=== PATIENT | male | born 1995 | race Caucasian/White ===

== ENCOUNTER 2019-04-17 13:01 | Observation (INO) | payer SELFPAY ==
[2019-04-17] VITALS (42 sets, daily range): BP systolic 95–121; BP diastolic 57–93; PULSE 67–141; RESP 12–21; TEMP 35.7–36.7; O2SAT 96–100
--- NOTE | 2019-04-17 13:08 | ED.GENADUL_ITS ---
Discharge Plan Discharge Details Chief Complaint: Dizzy/Sync Admit Date/Time: 04/17/19 16:08 Admit Provider: Federico Romero Attending Provider: Federico Romero Primary Care Provider: Victorino Jordan ED Provider: Hiral Gr Discharge Data Discharge Date/Time-TO BE ENTERED AT DEPARTURE: 04/17/19 16:43 Medical Decision Making Patient is a 24 old male presenting today after a presyncopal event. Reports that he had walked from home to work and during that work felt slightly dizzy. States he does this on a daily basis and typically does not experience this. However, today when he arrived at work and has been still for a few months the lightheadedness increased to the point that he thought that he may have a syncopal episode. He expresses to coworkers who are able to get him to a resting position and called EMS. When EMS arrived, patient was tachycardic in the 120s. Initially, there was concern that this may have been associated with the patient being dehydrated. He does report that he typically does not drink much water throughout the day but he did have a few glasses this morning prior to going to work. Patient has had multiple syncopal episodes like this historically. States that often they are around times of stress. He has experienced chest pain with them historically but denies any today. Denies any headache, visual changes, shortness of breath, difficulty breathing, GI upset. No recent fevers or chills. Currently feeling much improved and asymptomatic. Family history pertinent for his maternal grandmother dying at young age from [place] and father dying at the age of 30. Patient was estranged from his father and is unclear what caused his but believes it may have been cardiac etiology. Patient reports that he typically walks to and from work at least 3 times a day and does not normally experience symptoms like this. ECG was reviewed by Dr. Rojas. Patient's normal sinus rhythm, please see his notes for further information. Contacted by the lab with concern for patient troponin elevated 0.07. He does report that he has had an echo history of major mid after similar episode, will obtain these results. Plan to give the patient aspirin. He denies any chest pain, shortness of breath, difficulty breathing. Again, no nausea, no radiating pain. He was tachycardic in the 120s per EMS with orthostatic testing. Patient has not been tachycardic while here. Labs otherwise without significant abnormality. Plan for repeat troponin. Patient given Aspirin. Reviewed notes from [facility] [place]. Patient was last seen for similar episode on 12/15/2017. At that time as well, patient was endorsing a large amount of stress and had a syncopal episode. He was seen a month prior to that for the same thing in her ED. At that time, troponins not obtained. EKG was normal. Patient reporting echo performed did not find any record of this. Consulted with Dr. Latif. He advised patient should have at least 2-3 repeat troponins as well as continued monitoring. Advised echo. We did discuss plus/minus of inpatient admission. I also discussed this at length with the patient. As the patient has had similar episodes historically, was quite tachycardiac per EMS, has elevated troponin and very concerning family history, feel that admission is appropriate. Primarily concerned for arrhythmia leading to patient elevated troponin and symptoms. Consulted with Dr. Casiano regarding admission of the patient for continued monitoring and further cardiac testing tomorrow. He agrees to admission. HPI General Mode of arrival: EMS . Date/Time Provider Initiated Documentation: 04/17/19 13:08 . Limitations to Documentation: no limitations . Information obtained by: patient, family (significant other), EMS and RN notes reviewed . HPI Narrative: Patient is a 24 year old male, brought in via EMS, after pre-syncopal episode at work. Patient reports that shortly after arriving to work today he suddenly became lightheaded and felt weak. States that he expressed the sensations in his coworkers who helped lower him to a chair. Denies striking his head. Did not actually loose consciousness. States that he has had this occur multiple times historically. Reports that when he is at his previously he had chest discomfort but denies this today. No chest pain, shortness of breath. Denies any headache, visual changes. No recent infectious symptoms. No fever/chills, GI upset. Denies any incontinence. Related Data Home Medications Medication Instructions Recorded Confirmed Unknown [No Known Home Meds] 04/17/19 04/17/19 Allergies Allergy/AdvReac Type Severity Reaction Status Date / Time No Known Allergies Allergy Unverified 04/17/19 13:06 General Stated Complaint: Dizzy/Sync JOSUE: 3 Review of Systems Constitutional Constitutional: Reports as per HPI, Denies chills, Denies fever(s), Denies frequent falls, Denies headache(s), Denies lethargy and Denies poor appetite Eyes Eyes: Denies change in vision ENT Ears, Nose, Mouth, and Throat: Reports dizziness and Denies headache(s) Cardiovascular Cardiovascular: Reports as per HPI, Denies syncope, Denies dyspnea and Denies dyspnea on exertion Respiratory Respiratory: Reports as per HPI, Denies chest congestion, Denies cough, Denies pain on inspiration, Denies pain with cough, Denies dyspnea, Denies dyspnea on exertion and Denies wheezing Gastrointestinal Gastrointestinal: Reports as per HPI, Denies abdominal pain, Denies diarrhea, Denies nausea and Denies vomiting Genitourinary Genitourinary: Denies system reviewed and no additional complaints, except as docu (denies change in urinary habits) Musculoskeletal Musculoskeletal: Reports as per HPI, Denies abnormal gait and Denies back pain Integumentary/Breasts Skin/Breast: Reports as per HPI and Denies rash Neurologic Neurologic: Reports as per HPI, Denies abnormal gait, Reports dizziness, Denies syncope, Denies frequent falls and Denies headache(s) Allergic/Immunologic Allergic/Immunologic: Denies wheezing [facility] Medical History (Updated 04/17/19 @ 19:16 by Federico Romero MD) Anxiety disorder (Acute) Obesity (Chronic) Family History (Updated 04/17/19 @ 19:17 by Federico Romero MD) Father , suddenly at age 30 No problems noted. Social History (Updated 04/17/19 @ 19:18 by Federico Romero MD) Smoking/Tobacco Use Status: Never Alcohol Intake: former Year quit: 2019 Drug use: Rarely Substance use type: marijuana Household members: significant other Housing: apartment Do you feel safe at home: Yes Do you feel safe in your relationship?: Yes Additional Social history: Moved here from [facility] 2019 Exam Const General: cooperative, healthy appearing, comfortable, no acute distress and well developed Nutritional Appearance: well nourished and overweight Orientation: alert, awake and oriented x3 HENMT Head: normal to inspection Ears: hearing grossly normal bilaterally Mouth: moist mucous membranes Chest Chest: normal inspection of the chest, normal palpation of entire chest wall and no crepitus Resp Effort & Inspection: normal respiratory effort, able to speak in complete se ntences and no respiratory distress Auscultation: clear to auscultation bilaterally, no rales, no rhonchi and no wheezes Cardio Rate: regular rate Rhythm: regular rhythm Heart Sounds: S1 normal and S2 normal GI Inspection: normal to inspection, no edema and non-distended Palpation: soft, no hepatosplenomegaly, not firm, no guarding, not rigid and nontender Auscultation: normal bowel sounds Back/Spine/Pelvis Back: no CVA tenderness Thoracic/Lumbar Spine: thoracic and lumbar spine normal to inspection Skin General skin exam: no rashes or lesions noted Trauma: no lacerations or abrasions Neuro General: alert, awake and oriented x3 Cognition: normal cognition Speech: speech normal Gait: normal gait Extrem General: normal to inspection, normal capillary refill, no pedal edema, no calf tenderness and normal gait Psych Appearance: grossly normal and well kempt Mental Status: mental status grossly normal Speech and Movement: speech and movement normal Course Vital Signs Vital signs: Vital Signs Temperature 35.7 C L 04/17/19 13:03 Pulse 83 04/17/19 13:03 Respiratory Rate 16 04/17/19 13:03 Blood Pressure 109/93 H 04/17/19 13:03 Pulse Oximetry 100 04/17/19 13:03 Temperature 35.7 C L 04/17/19 13:03 Pulse 83 04/17/19 13:03 Respiratory Rate 18 04/17/19 13:03 Respiratory Effort Non-Labored 04/17/19 13:03 Respiratory Depth Normal 04/17/19 13:03 Respiratory Pattern Normal 04/17/19 13:03 Blood Pressure 109/93 H 04/17/19 13:03 Blood Pressure Position Sitting 04/17/19 13:03 Pulse Oximetry 100 04/17/19 13:03 Oxygen Delivery Method Room Air 04/17/19 13:03 Oxygen Flow Rate 0 04/17/19 13:03 Pain Level 0 04/17/19 13:03
[2019-04-17] MEDS: Normal Saline 1,000 ML 1000 ML IV (13:31)
[2019-04-17 13:40] LABS: Abs Immature Grans 0.02 k/cumm (0.0-0.09); Absolute Basophil Count 0.04 k/cumm (0.0-0.2); Absolute Eosinophil Count 0.12 k/cumm (0.0-0.7); Absolute Lymphocyte Count 1.63 k/cumm (1.2-3.4); Absolute Monocyte Count 0.65 k/cumm (0.11-0.7); Absolute Neutrophil Count 4.75 k/cumm (1.2-6.7); Basophils % 0.6; Eosinophils % 1.7; HCT 40.8 % (40.0-50.0); HGB 13.2 g/dL (13.5-17.5); Immature Grans % 0.3; Lymphocytes % 22.6; Mean Corp. HGB Concentration 32.4 g/dL (32.0-36.0); Mean Corpuscular Volume 83.6 fL (80-95); Mean Platelet Volume 10.4 fL (8.0-11.0); Neutrophils % 65.8; Platelet Count 246 x1000/uL (130-400); RBC 4.88 m/cumm (4.50-6.00); RBC Distribution Width 13.3 % (11.8-14.1); White Blood Cell Count 7.21 k/cumm (4.4-10.8)
[2019-04-17 13:58] LABS: Troponin I 0.07 ng/Ml (<0.06)
[2019-04-17 14:02] LABS: ALT 39 U/L (16-63); AST 20 U/L (15-37); Albumin 3.7 g/dL (3.4-5.0); Anion Gap 6.4 mmol/L (3-11); BUN 10 mg/dL (7-18); Bilirubin, Total 0.5 mg/dL (0.2-1.0); CO2 28.6 mmol/L (21.0-32.0); CREATININE 0.99 mg/dL (0.70-1.30); Chloride 105 mmol/L (98-107); Glucose 84 mg/dL (74-106); Sodium 140 mmol/L (136-145); TSH (W/Ref FT4) 1.75 uIU/mL (0.36-3.74); Total Protein 7.4 g/dL (6.4-8.2)
[2019-04-17 14:13] LABS: Alkaline Phosphatase 76 U/L (46-116)
[2019-04-17] MEDS: Aspirin 81 MG CHEW 324 MG CH (14:54)
[2019-04-17 16:53] LABS: Troponin I < 0.05 ng/Ml (<0.06)
[2019-04-17] MEDS: Enoxaparin 40 MG/0.4 ML SYR SC (18:02)
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
[2019-04-17 21:51] LABS: Troponin I < 0.05 ng/Ml (<0.06)
[2019-04-18 00:32] VITALS: BP 110/67; PULSE 69; RESP 18; TEMP 36.4; O2SAT 99
[2019-04-18 05:00] VITALS: BP 104/66; PULSE 76; RESP 16; TEMP 36.6; O2SAT 99
--- NOTE | 2019-04-18 07:30 | DI.US_ITS ---
APPROVED REPORT EXAM: Comprehensive 2D, Doppler, and color-flow Echocardiogram Patient Location: In-Patient Line Construction Engineer: Geena Leone RDCS (AE) Rhythm: NSR Indications: near syncope Conclusion Left Ventricle : Left ventricle is borderline dilated for his body habitus. The left ventricle is mod erately dilated. Left ventricular systolic function is normal. Mild concentric left ventricular hyper trophy. There is normal LV segmental wall motion. The left ventricular diastolic function is normal. LVEF is estimated to be 55-60%. Right Ventricle : Right ventricle is mildly dilated. The right ventricular systolic function appears normal. Right ventricle is mildly hypertrophied. Atria : The left atrium size is normal. The right atrium size is mildly dilated. Aortic Valve : Aortic valve is likely bicuspid. No aortic regurgitation is present. There is no aort ic valvular stenosis. Mitral Valve : Mitral valve leaflets are mildly thickened. Trivial mitral regurgitation. No evidence of mitral valve stenosis. Great Vessels : Aortic root is mildly dilated (3.9cm). The ascending aorta size is normal (2.9cm). I VC is normal in size and collapses >50% with inspiration. There is no prior echocardiogram available for comparison. Wall motion Left Ventricle Left ventricle is borderline dilated for his body habitus. The left ventricle is moderately dilated. Left ventricular systolic function is normal. Mild concentric left ventricular hypertrophy. There is normal LV segmental wall motion. The left ventricular diastolic function is normal. LVEF is estimated to be 55-60%. Right Ventricle Right ventricle is mildly dilated. The right ventricular systolic function appears normal. Right vent ricle is mildly hypertrophied. Atria The left atrium size is normal. The right atrium size is mildly dilated. Aortic Valve Aortic valve is likely bicuspid. There is no aortic valvular stenosis. No aortic regurgitation is pre sent. Mitral Valve Mitral valve leaflets are mildly thickened. No evidence of mitral valve stenosis. Trivial mitral regu rgitation. Tricuspid Valve The tricuspid valve leaflets are midly thickened , but open well. Trace Tricuspid regurgitation. Pulmonic Valve Mild pulmonic regurgitation. Great Vessels Aortic root is mildly dilated (3.9cm). The ascending aorta size is normal (2.9cm). IVC is normal in s ize and collapses >50% with inspiration. Pericardium anterior epicardial fat pad is present. 2D Dimensions IVSd 1.40 cm M: 0.6-1.2 LV EDV A2C 213.70 mL PWd 1.35 cm M: 0.6 - 1.2 LV EDV A4C 215.90 mL LVDd 6.45 cm M: 4.2 - 5.8 LA Volume Index A2C 26.09 mL/m2 LVDs 4.45 cm M: 2.5 - 4.0 LA Volume Index A4C 33.47 mL/m2 Aortic Root 3.90 cm M: 3.1 - 3.7 LA Volume Index Biplane 30.33 mL/m2 RA Area A4C 22.59 cm2 LA Area A4C 25.49 cm2 LVOT 2.85 cm (M/F) 1.5-2.5 LA Area A2C 21.93 cm2 Ascending Aorta 2.89 cm M: 2.6 - 3.4 EF AP4 52.62 % LVEF (Teich) 57.64 % EF AP2 65.00 % LVEF (Leblanc's) 61.00 % M: 52 - 72 EF BP 61.00 % LV Volume 148.81 mL M: 62 - 150 LV Volume Index 50.96 mL/m2 M: 34 - 74 FS 31.05 % LV Diastology E/A Ratio 1.6 MED E' 0.11 (>0.07 m/s) LV E/e MED 5.75 (<14) LAT E' 0.18 (>0.1 m/s) LV E/e LAT 3.70 (<14) Pulm Vein s 0.41 m/s PV S/D Ratio 0.92 Pulm Vein d 0.45 m/s Aortic Valve LVOT Area 6.53 cm2 LVOT Peak Lee. 0.85 m/s LVOT Mean Lee. 0.56 m/s LVOT Peak Gr. 3.05 mmHg RETA Vmax Index 1.75 cm2/m2 LVOT Mean Gr. 1.50 mmHg LVOT VTI 0.15 m RETA Mean Lee. Index 1.54 cm2/m2 AoV Peak Lee. 1.12 (0.5-1.3 m/s) AoV Mean Lee. 0.82 m/s AO Peak GR. 5.06 mmHg AO Mean GR. 2.94 (<5 mmHg) RETA (VTI) 4.96 (2.5-4.5 cm2) RETA (VTI) Index 1.70 cm/m2 Mitral Valve MV E Max Lee. 0.65 (0.4-1.3 m/s) MV A Velocity 0.40 (0.4-1.3 m/s) E/A Ratio 1.53 MV Decel. Time 180.30 (160-240 msec) MV PHT 52.30 msec MVA PHT 4.20 cm2 Pulmonary Valve PV Peak Velocity 0.98 (0.5-1.5 m/s) RVOT Peak Gr. 2.31 mmHg RVOT Peak Lee. 0.76 m/s RVOT Mean Gr. 1.15 mmHg RVOT VTI 0.15 m
--- NOTE | 2019-04-18 11:03 | W.NUTCONSULT ---
Date of service: 04/18/19 Time of Service: 11:03 Nutritional Consult INTERVENTION: 24 year old male s/p near syncope. PMH: anxiety disorder. Following regular meal plan with excellent intake. BMI indicates class 3 obesity, has lost 50 lbs in last year, is trying to lose weight by having smaller portions. Medical chart indicates high amounts of caffeine and sugar via soft drinks, is trying to cut down. Other than morbid obesity, not considered at nutritional risk. MONITORING AND EVALUATION: will monitor po intake and weight trends Time Spent in Nutritional Counseling and Treatment: 0 time spent face to face
--- NOTE | 2019-04-18 11:27 | DSE_ITS ---
Date of service: 04/18/19 Time of Service: 11:27 DS: Diagnosis Discharge Diagnosis (1) Near syncope: Status: Acute (2) Bicuspid aortic valve: Status: Acute Discharge Plan Disposition Condition: Good Discharge Details Chief Complaint: Dizzy/Sync Reason For Visit: NEAR-SYNCOPE Admit Date/Time: 04/17/19 16:08 Admit Provider: Federico Romero Attending Provider: Federico Romero Primary Care Provider: Victorino Jordan [facility]: Patient presented to the ED with pre syncope. He was brought by EMS and was tachycardic to the 120s with stable BP. EKG on arrival showed NSR without ectopy, arrythmia, or ischemia. Labs notable for an initial troponin of 0.07 which downtrended. He had an echocardiogram which was performed prior to discharge and showed a moderately dilated LV with ef 55-60%, RV hypertrophy, and a likely bicuspid aortic valve without stenosis or regurgitation. He had no events on telemetry overnight and remained HD stable. He had no chest pain, palpitations, or syncope or pre syncope through course of stay. He will follow up with cardiology for his bicuspid aortic valve, Home Meds and New Rx's Prescriptions: No Action No Known Home Meds RF: 0 Discharge Instructions Instructions: Syncope (GEN) Additional Instructions: Follow up with your PCP and cardiology if you have light headedness, diziness, chest pain, or palpitations, seek medical attention Stand Alone Forms: Nursing Discharge Form Referrals: Bart Levine DO [OSTEOPATHIC DOCTOR] - 04/25/19 10:00 am Activity:: Activity as Tolerated Equipment/Supplies:: No Equipment Needed Diet:: Normal Diet Discharge Data Discharge Date/Time-TO BE ENTERED AT DEPARTURE: 04/18/19 12:36 DS: Summary Status at Discharge Functional status at discharge: independent ambulation Overall status at discharge: patient is back to baseline Mental Status: mental status grossly normal Speech and Movement: speech and movement normal Mood: congruent mood Affect: normal affect Time Spent with Patient providing and/or coordinating discharge services: Less than 30 minutes Exam Narrative Exam Narrative: GEN: obese, NAD HEENT: NCAT, MMM CV: RRR, nl s1 and s2, no murmurs, no ectopy LUNGS: CTAB ABD: NABS, soft, NT, ND EXT: symmetrical, no edema Psych Mental Status: mental status grossly normal Speech and Movement: speech and movement normal Mood: congruent mood Affect: normal affect DS: Data Vitals/I&O Vitals and I&O: Vital Signs Temperature 36.6 C 04/18/19 05:00 Temperature Source Tympanic 04/18/19 05:00 Pulse 76 04/18/19 05:00 Pulse Rhythm Regular 04/18/19 09:55 Pulse 80 04/17/19 16:32 Respiratory Rate 16 04/18/19 05:00 Respiratory Effort Non-Labored 04/18/19 09:55 Respiratory Depth Normal 04/18/19 09:55 Respiratory Pattern Normal 04/18/19 09:55 Blood Pressure 104/66 04/18/19 05:00 Blood Pressure Mean 92 04/17/19 16:32 Blood Pressure Position Sitting 04/17/19 13:03 Pulse Oximetry 99 04/18/19 05:00 Oxygen Delivery Method Room Air 04/18/19 05:00 Oxygen Flow Rate 0 04/18/19 05:00 Pain Level 0 04/17/19 17:20 Comment 04/17/19 17:20 Intake & Output 04/17/19 04/17/19 04/18/19 11:59 23:59 11:59 Intake Total 1000 / 1000 1240 / 1240 Balance 1000 / 1000 1240 / 1240 Weight 173.726 kg Intake: IV 1000 / 1000 1000 / 1000 Oral 240 / 240 Other: Urine Color Yellow Urine Appearance Clear Comment per report of pt. Voiding Methods Toilet Data Completed and Pending Labs on day of discharge: Labs from last 24 hours 04/17/19 04/17/19 04/17/19 21:30 17:30 16:30 WBC RBC Hgb Hct MCV MCH MCHC RDW Plt Count MPV Immature Gran % Neutrophils % Lymphocytes % Monocytes % Eosinophils % Basophils % Absolute Neutrophils Absolute Lymphocytes Absolute Monocytes Absolute Eosinophils Absolute Basophils Sodium Potassium Chloride Carbon Dioxide Anion Gap BUN Creatinine Estimated GFR/1.73 m2 Glucose Calcium Total Bilirubin AST ALT Alkaline Phosphatase Troponin I < 0.05 Cancelled < 0.05 Total Protein Albumin TSH 04/17/19 04/17/19 04/17/19 13:30 13:30 13:30 WBC 7.21 RBC 4.88 Hgb 13.2 L Hct 40.8 MCV 83.6 MCH 27.0 MCHC 32.4 RDW 13.3 Plt Count 246 MPV 10.4 Immature Gran % 0.3 Neutrophils % 65.8 Lymphocytes % 22.6 Monocytes % 9.0 Eosinophils % 1.7 Basophils % 0.6 Absolute Neutrophils 4.75 Absolute Lymphocytes 1.63 Absolute Monocytes 0.65 Absolute Eosinophils 0.12 Absolute Basophils 0.04 Sodium 140 Potassium 4.0 Chloride 105 Carbon Dioxide 28.6 Anion Gap 6.4 BUN 10 Creatinine 0.99 Estimated GFR/1.73 m2 >= 60.00 Glucose 84 Calcium 9.0 Total Bilirubin 0.5 AST 20 ALT 39 Alkaline Phosphatase 76 Troponin I 0.07 Total Protein 7.4 Albumin 3.7 TSH 1.75 [facility] Medical History Anxiety disorder (Acute) Obesity (Chronic) Family History Father , suddenly at age 30 No problems noted. Social History Smoking/Tobacco Use Status: Never Alcohol Intake: former Year quit: 2019 Drug use: Rarely Substance use type: marijuana Household members: significant other Housing: apartment Do you feel safe at home: Yes Do you feel safe in your relationship?: Yes Additional Social history: Moved here from [facility] 2019
[2019-04-18 12:02] VITALS: PULSE 89
== END 2019-04-18 12:36 | disposition home or self-care (01) ==
LOC: ER 15:48 → MS 16:53
PROVIDERS: Admitting Provider Family Medicine; Emergency Provider Physician Assistant; PCP Internal Medicine; Visit Provider Internal Medicine
DX: R55 Syncope and collapse (principal); F41.9 Anxiety disorder, unspecified; E66.9 Obesity, unspecified; Q23.1 Congenital insufficiency of aortic valve; I51.7 Cardiomegaly
CPT/HCPCS: 36415; 80053; 93005; 96360; 99219; 99238; 99285; J1650; 84443; 84484; 85025; 93010; 93306; 99217; G0378